=== PATIENT | male | born 1935 | race Caucasian/White ===

== ENCOUNTER 2016-12-25 14:19 | Day surgery (SDC) | payer MEDICARE, OTHER ==
[~2016-12-25] VITALS: Ht 177.8 cm; Wt 86.0 kg
[~2016-12-25 14:19] MED LIST: ALPR0.5T10 PO; ASPI-496 PO; CELE50CA PO; CHOL5000 PO; FEXO60TA24 PO; HYDR2TAB40 PO; IRBE300T40 PO; METO25TA35 PO; MULT-750 PO; NIAC400C5 PO; NITR0.4T SL; PRAV40TA2 PO; THYR90TA PO; Will bring list DOS; [UNRECOGNIZED DRUG - OTHER] PO; [UNRECOGNIZED DRUG - OTHER] PO; androgel PO
[2016-12-25] MEDS ORDERED: MITOMYCIN 40 MG, WATER FOR INJECTION,STERILE 20 ML in SYRINGE 1 EA INTVESIC ONE (14:30)
[2016-12-25] MEDS ORDERED: LACTATED RINGERS 1,000 ML IV SCH (14:58)
[2016-12-25 15:10] VITALS: BP 162/96
[2016-12-25 15:59] LABS: ASPARTATE AMINO TRANSFERASE 23 U/L (15-37); BLOOD UREA NITROGEN 17 mg/dL (7-18)
[2016-12-25] MEDS ORDERED: CIPROFLOXACIN/PMX 400MG/200ML 200 ML ONE (16:57)
[2016-12-25] MEDS ORDERED: EPHEDRINE 50 MG/ML, 1ML ONE (17:15)
[2016-12-25] MEDS ORDERED: GLYCOPYRROLATE 0.2MG/1ML ONE (17:15)
[2016-12-25] MEDS ORDERED: DEXAMETHASONE 4 MG/ML, 1ML ONE (17:15)
[2016-12-25] MEDS ORDERED: ESMOLOL 100 MG/10 ML ONE (17:15)
[2016-12-25] MEDS ORDERED: ONDANSETRON 2MG/ML, 2ML ONE (17:15)
[2016-12-25] MEDS ORDERED: PROPOFOL 10 MG/ML, 20ML ONE (17:15)
[2016-12-25] MEDS ORDERED: FENTANYL PF 250 MCG/5ML ONE (17:18)
[2016-12-25] MEDS ORDERED: MITOMYCIN 40 MG IVPush ONE (17:55)
[2016-12-25] MEDS ORDERED: EPHEDRINE 50 MG/ML, 1ML IVPush PRN (18:00)
[2016-12-25] MEDS ORDERED: OXYcodone 5 MG/5 ML ORAL.SOL UDC PO PRN (18:00)
[2016-12-25] MEDS ORDERED: ACETAMINOPHEN 325 MG TABLET PO PRN (18:00)
[2016-12-25] MEDS ORDERED: METOCLOPRAMIDE 5 MG/ML, 2ML IV PRN (18:00)
[2016-12-25] MEDS ORDERED: LABETALOL 5MG/ML, 20ML IV PRN (18:00)
[2016-12-25] MEDS ORDERED: ONDANSETRON 2MG/ML, 2ML IVPush PRN (18:00)
[2016-12-25] MEDS ORDERED: METOPROLOL 1 MG/ML, 5ML IV PRN (18:00)
[2016-12-25] MEDS ORDERED: PROMETHAZINE 25 MG/ML, 1ML IV PRN (18:00)
[2016-12-25] MEDS ORDERED: HYDROmorphone 1 MG/ML, 1ML IV PRN (18:00)
[2016-12-25] MEDS ORDERED: hydrALAzine 20 MG/ML, 1ML IV PRN (18:00)
[2016-12-25] MEDS ORDERED: FENTANYL PF 100 MCG/2ML ONE (18:22)
[2016-12-25] MEDS: FENTANYL PF 100 MCG/2ML IV PRN ×2 (18:25→18:32)
[2016-12-25] MEDS ORDERED: HYDR-3240 PO (19:43)
[2016-12-25 19:47] VITALS: BP 156/90
== END 2016-12-25 21:27 | disposition home or self-care (01) ==
LOC: OR 14:19 → 4NOR 19:30 → OR 21:27
PROVIDERS: ATTEND Urology
DX: C67.2 Malignant neoplasm of lateral wall of bladder (principal); R31.0 Gross hematuria; I10 Essential (primary) hypertension; I25.10 Atherosclerotic heart disease of native coronary artery without angina pectoris; Z95.5 Presence of coronary angioplasty implant and graft; Z87.891 Personal history of nicotine dependence; E78.00 Pure hypercholesterolemia, unspecified; Z87.440 Personal history of urinary (tract) infections; M19.90 Unspecified osteoarthritis, unspecified site; Z82.49 Family history of ischemic heart disease and other diseases of the circulatory system; Z80.0 Family history of malignant neoplasm of digestive organs; Z82.3 Family history of stroke
CPT/HCPCS: 36415; 51720; 52235; 80053; 81001; 85025; 88304; 88307; 93005; J0744; J1100; J2405; J2704; J3010; J7120; J9280; J3490

== ENCOUNTER 2016-12-27 08:08 | Emergency (ER) | payer MEDICARE, OTHER ==
[~2016-12-27] VITALS: Ht 177.8 cm; Wt 84.0 kg
[~2016-12-27 08:08] MED LIST changes: +HYDR-3240 PO
[2016-12-27 09:41] VITALS: BP 124/79
== END 2016-12-27 09:43 | disposition home or self-care (01) ==
LOC: ED 08:29
DX: K62.5 Hemorrhage of anus and rectum (principal); E78.00 Pure hypercholesterolemia, unspecified; I25.10 Atherosclerotic heart disease of native coronary artery without angina pectoris; I10 Essential (primary) hypertension; Z95.5 Presence of coronary angioplasty implant and graft; Z87.891 Personal history of nicotine dependence; Z85.51 Personal history of malignant neoplasm of bladder
CPT/HCPCS: 36415; 46600; 85025

== ENCOUNTER → 2018-01-22 | Outpatient (CLI) | payer MEDICARE, OTHER | END | disposition home or self-care (01) | LOC: PETCFH 10:38 | PROVIDERS: ATTEND Colon & Rectal Surgery | DX: C67.9 Malignant neoplasm of bladder, unspecified (principal) | CPT/HCPCS: 78306; A9503 ==

== ENCOUNTER → 2018-01-27 | Outpatient (CLI) | payer MEDICARE, OTHER ==
[~2018-01-27] MED LIST changes: +OMNIPAQUE 350 MG/ML, 100ML BOTTLE ONE
== END ==
LOC: RAD 09:12
PROVIDERS: ATTEND Colon & Rectal Surgery
DX: Z01.818 Encounter for other preprocedural examination (principal); C67.9 Malignant neoplasm of bladder, unspecified; N40.0 Benign prostatic hyperplasia without lower urinary tract symptoms; N28.1 Cyst of kidney, acquired
CPT/HCPCS: 71260; 74177; Q9967

== ENCOUNTER → 2018-02-10 | Outpatient (CLI) | payer MEDICARE, OTHER ==
[~2018-02-10] MED LIST changes: +GADOBUTROL 10 MMOL/10 ML VIAL ONE; -OMNIPAQUE 350 MG/ML, 100ML BOTTLE ONE
== END | disposition home or self-care (01) ==
LOC: CFH 10:02
PROVIDERS: ATTEND Internal Medicine
DX: M51.36 Other intervertebral disc degeneration, lumbar region (principal); M48.061 Spinal stenosis, lumbar region without neurogenic claudication; C67.9 Malignant neoplasm of bladder, unspecified
CPT/HCPCS: 72158; A9585

== ENCOUNTER → 2018-04-03 | Outpatient (CLI) | payer MEDICARE, OTHER ==
[~2018-04-03] MED LIST changes: -GADOBUTROL 10 MMOL/10 ML VIAL ONE
== END | disposition home or self-care (01) ==
LOC: RAD 15:22
PROVIDERS: ATTEND Internal Medicine
DX: N32.89 Other specified disorders of bladder (principal); N28.1 Cyst of kidney, acquired; C67.9 Malignant neoplasm of bladder, unspecified
CPT/HCPCS: 76700

== ENCOUNTER → 2018-04-22 | Outpatient (CLI) | payer MEDICARE, OTHER ==
[~2018-04-22] MED LIST changes: +OMNIPAQUE 350 MG/ML, 100ML BOTTLE ONE
== END | disposition home or self-care (01) ==
LOC: PETCFH 10:43
PROVIDERS: ATTEND Internal Medicine
DX: Q61.02 Congenital multiple renal cysts (principal); R59.1 Generalized enlarged lymph nodes; M47.896 Other spondylosis, lumbar region
CPT/HCPCS: 71260; 74177; 78306; A9503; Q9967

== ENCOUNTER → 2018-04-28 | Outpatient (CLI) | payer MEDICARE, OTHER ==
[~2018-04-28] MED LIST changes: -OMNIPAQUE 350 MG/ML, 100ML BOTTLE ONE
== END | disposition home or self-care (01) ==
LOC: CFH 13:15
PROVIDERS: ATTEND Internal Medicine
DX: C67.9 Malignant neoplasm of bladder, unspecified (principal); M79.662 Pain in left lower leg; Z87.891 Personal history of nicotine dependence

== ENCOUNTER 2018-05-13 11:39 | Emergency (ER) | payer MEDICARE, OTHER ==
[~2018-05-13] VITALS: Ht 180.3 cm; Wt 88.1 kg
[2018-05-13] MEDS ORDERED: SODIUM CHLORIDE FLUSH 10ML SYR IVF ONE (12:00)
[2018-05-13 12:33] LABS: INTERNATIONAL NORMALIZED RATIO 1.06 (0.93-1.1)
[2018-05-13 12:36] LABS: CHLORIDE 108 mmol/L (98-107)
[2018-05-13 12:47] LABS: ANION GAP 7 mmol/L (5-15); CALCIUM 8.1 mg/dL (8.5-10.1); CREATININE 0.92 mg/dL (0.7-1.3)
[2018-05-13 12:48] LABS: ALBUMIN 2.5 g/dL (3.4-5.0); TROPONIN I < 0.015 ng/mL (0.000-0.045)
[2018-05-13 12:58] LABS: MEAN CORPUSCULAR HGB CONC 34.6 g/dL (33.2-36.2); MEAN CORPUSCULAR VOLUME 89.7 fL (81-97); MEAN PLATELET VOLUME 9.6 fL (7.4-10.4); RED BLOOD COUNT 2.68 x10^6/uL (4.38-5.82); RED CELL DISTRIBUTION WIDTH 17.9 % (9.4-14.8)
[2018-05-13 12:59] LABS: PLATELET COUNT 24 x10^3/uL (130-400)
[2018-05-13 13:12] LABS: MD YES
[2018-05-13 13:23] LABS: REACTIVE LYMPHS # (MANUAL) 0.05 x10^3/uL (0-0); REACTIVE LYMPHS % (MANUAL) 2 % (0-0)
[2018-05-13 13:24] LABS: <PLATELET ESTIMATE> DECREASED; <PLT MORPHOLOGY> NORMAL PLT MORPH; ANISOCYTOSIS 1+; BAND#(MANUAL) 0.05 x10^3/uL; BANDS%(MANUAL) 2 % (0-7); EOS#(MANUAL) 0.02 x10^3/uL (0.0-0.4); EOS% (MANUAL) 1 % (1-7); LYMPH#(MANUAL) 0.53 x10^3/uL (1-3.4); LYMPHS% (MANUAL) 22 % (22-44); MONOS#(MANUAL) 0.19 x10^3/uL (0.3-2.7); MONOS% (MANUAL) 8 % (2-9); SEG#(MANUAL) 1.56 x10^3/uL (1.8-6.8); SEGS% (MANUAL) 65 % (42-75)
[2018-05-13 13:25] LABS: POLYCHROMASIA 1+
[2018-05-13] MEDS ORDERED: OMNIPAQUE 350 MG/ML, 100ML BOTTLE ONE (13:28)
[2018-05-13 13:51] VITALS: BP 115/58
== END 2018-05-13 14:40 | disposition home or self-care (01) ==
LOC: ED 12:17
DX: J90 Pleural effusion, not elsewhere classified (principal); D61.818 Other pancytopenia; I10 Essential (primary) hypertension; E78.00 Pure hypercholesterolemia, unspecified; I25.10 Atherosclerotic heart disease of native coronary artery without angina pectoris; Z87.891 Personal history of nicotine dependence
CPT/HCPCS: 36415; 71275; 80048; 82040; 84484; 85025; 85610; 93005; 99285; Q9967

== ENCOUNTER → 2018-06-04 | Outpatient (CLI) | payer MEDICARE, OTHER ==
[~2018-06-04] MED LIST changes: +CARTIA XT; +CLOP75TA PO; +NITR0.4T28 SL; +OMEP-110 PO; +OMNIPAQUE 350 MG/ML, 100ML BOTTLE ONE
== END | disposition home or self-care (01) ==
LOC: RAD 15:39
PROVIDERS: ATTEND Internal Medicine
DX: J90 Pleural effusion, not elsewhere classified (principal); I31.3 Pericardial effusion (noninflammatory); R59.9 Enlarged lymph nodes, unspecified; N40.0 Benign prostatic hyperplasia without lower urinary tract symptoms; J98.11 Atelectasis; R60.0 Localized edema
CPT/HCPCS: 71046; 71260; 74177; Q9967

== ENCOUNTER 2018-07-13 09:54 | Outpatient (CLI) | payer MEDICARE, OTHER ==
[~2018-07-13 09:54] MED LIST changes: -OMNIPAQUE 350 MG/ML, 100ML BOTTLE ONE
== END 2018-07-24 10:23 | disposition home or self-care (01) ==
LOC: WOUND 09:54
PROVIDERS: ATTEND Internal Medicine
DX: S31.103A Unspecified open wound of abdominal wall, right lower quadrant without penetration into peritoneal cavity, initial encounter (principal); I89.0 Lymphedema, not elsewhere classified; I25.10 Atherosclerotic heart disease of native coronary artery without angina pectoris; E03.9 Hypothyroidism, unspecified; E78.5 Hyperlipidemia, unspecified; I25.2 Old myocardial infarction; I11.9 Hypertensive heart disease without heart failure; E78.00 Pure hypercholesterolemia, unspecified; M19.90 Unspecified osteoarthritis, unspecified site; Z87.891 Personal history of nicotine dependence; Z85.89 Personal history of malignant neoplasm of other organs and systems; Z95.5 Presence of coronary angioplasty implant and graft; Z85.51 Personal history of malignant neoplasm of bladder; Z79.82 Long term (current) use of aspirin; X58.XXXA Exposure to other specified factors, initial encounter; Y92.89 Other specified places as the place of occurrence of the external cause; Y93.89 Activity, other specified; Y99.8 Other external cause status
CPT/HCPCS: G0463

== ENCOUNTER 2018-07-20 12:55 | Outpatient (CLI) | payer MEDICARE, OTHER | END 2018-07-27 12:54 | disposition home or self-care (01) | LOC: WOUND 12:55 | PROVIDERS: ATTEND Internal Medicine | DX: C67.8 Malignant neoplasm of overlapping sites of bladder (principal); I89.0 Lymphedema, not elsewhere classified; I10 Essential (primary) hypertension; E78.5 Hyperlipidemia, unspecified; E03.9 Hypothyroidism, unspecified; I25.10 Atherosclerotic heart disease of native coronary artery without angina pectoris; Z87.891 Personal history of nicotine dependence; Z85.51 Personal history of malignant neoplasm of bladder | CPT/HCPCS: G0463 ==

== ENCOUNTER → 2018-08-26 | Outpatient (CLI) | payer MEDICARE, OTHER | END | disposition home or self-care (01) | LOC: ROC 07-23 08:06 | PROVIDERS: ATTEND Radiology Radiation Oncology | DX: C67.9 Malignant neoplasm of bladder, unspecified (principal); N40.0 Benign prostatic hyperplasia without lower urinary tract symptoms; I25.10 Atherosclerotic heart disease of native coronary artery without angina pectoris; E78.5 Hyperlipidemia, unspecified; I10 Essential (primary) hypertension; E03.9 Hypothyroidism, unspecified | CPT/HCPCS: G0463 ==

== ENCOUNTER → 2018-09-22 | Outpatient (CLI) | payer MEDICARE, OTHER ==
[~2018-09-22] MED LIST changes: +FURO-93 PO; +LIDOCAINE-MPF 1%, 5ML ONE; +LORA0.5T PO; +ONDA8TAB15 PO; +POLY17PO5 PO; +SENN-31 PO; +SENN1TAB9 PO
== END | disposition home or self-care (01) ==
LOC: RAD 12:17
PROVIDERS: ATTEND Internal Medicine
DX: C67.9 Malignant neoplasm of bladder, unspecified (principal); J90 Pleural effusion, not elsewhere classified
CPT/HCPCS: 32555

== ENCOUNTER → 2018-09-29 | Outpatient (CLI) | payer MEDICARE, OTHER ==
[~2018-09-29] MED LIST changes: +GADOBUTROL 7.5 MMOL/7.5 ML PFS ONE; -LIDOCAINE-MPF 1%, 5ML ONE
== END | disposition home or self-care (01) ==
LOC: CFH 10:02
PROVIDERS: ATTEND Internal Medicine
DX: G31.9 Degenerative disease of nervous system, unspecified (principal); C67.9 Malignant neoplasm of bladder, unspecified
CPT/HCPCS: 70553; A9585

== ENCOUNTER → 2018-10-30 | Outpatient (CLI) | payer MEDICARE, OTHER ==
[~2018-10-30] MED LIST changes: -GADOBUTROL 7.5 MMOL/7.5 ML PFS ONE; +LIDOCAINE-MPF 1%, 5ML ONE; +SENN-178 PO; -SENN1TAB9 PO
== END | disposition home or self-care (01) ==
LOC: RAD 08:48
PROVIDERS: ATTEND Internal Medicine
DX: J90 Pleural effusion, not elsewhere classified (principal); C67.9 Malignant neoplasm of bladder, unspecified
CPT/HCPCS: 32555; 49083

== ENCOUNTER 2018-11-10 11:24 | Day surgery (SDC) | payer MEDICARE, OTHER ==
[~2018-11-10] VITALS: Ht 177.8 cm; Wt 75.0 kg
[~2018-11-10 11:24] MED LIST changes: -LIDOCAINE-MPF 1%, 5ML ONE
[2018-11-10 12:09] VITALS: BP 112/75
[2018-11-10] MEDS ORDERED: SODIUM CHLORIDE 0.9% 1,000 ML IV SCH (12:13)
[2018-11-10] MEDS ORDERED: CEFAZOLIN PMX 1GM/50ML 50 ML IV ONE (12:30)
[2018-11-10] MEDS ORDERED: LIDOCAINE-MPF 1%, 5ML ONE ×2 (13:47)
[2018-11-10] MEDS ORDERED: NALOXONE 1 MG/ML, 2ML ONE (13:48)
[2018-11-10] MEDS ORDERED: FLUMAZENIL 0.1 MG/1 ML, 5ML ONE (13:48)
[2018-11-10] MEDS ORDERED: FENTANYL PF 100 MCG/2ML ONE (13:48)
[2018-11-10] MEDS ORDERED: MIDAZOLAM 1 MG/ML, 5ML ONE (13:48)
== END 2018-11-10 17:00 | disposition home or self-care (01) ==
LOC: OUT 11:24
PROVIDERS: ATTEND Internal Medicine
DX: C67.9 Malignant neoplasm of bladder, unspecified (principal); I10 Essential (primary) hypertension; E78.5 Hyperlipidemia, unspecified; E03.9 Hypothyroidism, unspecified; I25.2 Old myocardial infarction; Z88.8 Allergy status to other drugs, medicaments and biological substances; Z79.82 Long term (current) use of aspirin; Z95.5 Presence of coronary angioplasty implant and graft; Z98.890 Other specified postprocedural states; Z87.891 Personal history of nicotine dependence
CPT/HCPCS: 32550; 49418; 99156; 99157; C1729; J0690; J2250; J3010; J7030; J2310